=== PATIENT | female | born 1960 | race Caucasian/White ===

== ENCOUNTER 2017-10-11 07:09 | Day surgery (SDC) | payer OTHER ==
[~2017-10-11] VITALS: Ht 167.6 cm; Wt 109.3 kg
[~2017-10-11 07:09] MED LIST: ALL DAY ALLERGY10 M3 PO; CHOLEST OFF PL450 MG PO; DITROPAN5 MG PO; DYAZIDE, MA1 CAPSULE PO; NORVASC5 MG PO; OMEPRAZOLE20 MG PO; PROBIOTIC1 EAC1 PO; SYNTHROID200 MCG PO; VALTREX1000 MG PO; VITAMIN B-121000 MCG PO; ZYLOPRIM300 MG PO
[2017-10-11 08:12] VITALS: BP 172/92
[2017-10-11] MEDS ORDERED: ULTRAM50 MG PO (10:42)
[2017-10-11 11:02] VITALS: BP 187/78
[2017-10-11 11:45] VITALS: BP 154/69
== END 2017-10-11 11:45 | disposition home or self-care (01) ==
LOC: SDC 07:09 → 2SOUTH 12:41 → EDSTATUS 12:52 → SDC 12:53
PROC: 0JB80ZZ Excision of Abdomen Subcutaneous Tissue and Fascia, Open Approach (ICD-10-PCS; principal; 2017-10-11)
DX: D17.1 Benign lipomatous neoplasm of skin and subcutaneous tissue of trunk (principal); R74.8 Abnormal levels of other serum enzymes; I10 Essential (primary) hypertension; K21.9 Gastro-esophageal reflux disease without esophagitis; M10.9 Gout, unspecified; E78.5 Hyperlipidemia, unspecified; E03.9 Hypothyroidism, unspecified; E66.9 Obesity, unspecified; Z68.41 Body mass index [BMI] 40.0-44.9, adult; R73.03 Prediabetes; E53.8 Deficiency of other specified B group vitamins; Z90.49 Acquired absence of other specified parts of digestive tract; Z90.710 Acquired absence of both cervix and uterus; Z83.49 Family history of other endocrine, nutritional and metabolic diseases; Z82.49 Family history of ischemic heart disease and other diseases of the circulatory system; Z88.1 Allergy status to other antibiotic agents; Z88.2 Allergy status to sulfonamides; Z88.8 Allergy status to other drugs, medicaments and biological substances
CPT/HCPCS: 88304; 93005; J0131; J0690; J2250; J3010